=== PATIENT | female | born 1995 | race Caucasian/White ===

== ENCOUNTER 2018-08-06 14:04 | Emergency (ER) | payer OTHER ==
[~2018-08-06] VITALS: Ht 162.6 cm; Wt 63.5 kg
[2018-08-06] MEDS ORDERED: PRENA1 TRUE CO1 EACH (14:18)
== END 2018-08-06 21:53 | disposition home or self-care (01) ==
LOC: ER 14:04
DX: K52.89 Other specified noninfective gastroenteritis and colitis (principal)

== ENCOUNTER 2019-02-11 06:09 | Inpatient (IN) | payer OTHER ==
[~2019-02-11] VITALS: Ht 162.6 cm; Wt 190.0 kg
[~2019-02-11 06:09] MED LIST: PRENA1 TRUE CO1 EACH
[2019-02-11] MEDS ORDERED: AMPICILLIN TRI500 MG PO (08:18)
== END 2019-02-14 12:42 | DRG 788 ==
LOC: LDR 06:09 → OB/GYN 06:09 → LDR 08:03 → OB/GYN 23:38
PROVIDERS: ADMIT Obstetrics & Gynecology
PROC: 4A0HXFZ Measurement of Products of Conception, Cardiac Rhythm, External Approach (ICD-10-PCS; 2019-02-11)
PROC: 10D00Z1 Extraction of Products of Conception, Low, Open Approach (ICD-10-PCS; principal; 2019-02-11 20:00)
DX: O82 Encounter for cesarean delivery without indication (principal); O76 Abnormality in fetal heart rate and rhythm complicating labor and delivery; O99.820 Streptococcus B carrier state complicating pregnancy; Z3A.39 39 weeks gestation of pregnancy; Z37.0 Single live birth

== ENCOUNTER 2021-06-18 13:39 | Emergency (ER) | payer OTHER ==
[~2021-06-18] VITALS: Ht 162.6 cm; Wt 77.1 kg
[~2021-06-18 13:39] MED LIST changes: +AMPICILLIN TRI500 MG PO
[2021-06-18] MEDS ORDERED: KETO10TA2 PO (15:16)
== END 2021-06-18 15:24 | disposition home or self-care (01) ==
LOC: ER 13:39
DX: M25.572 Pain in left ankle and joints of left foot (principal)

== ENCOUNTER 2021-07-01 19:15 | Emergency (ER) | payer OTHER ==
[~2021-07-01] VITALS: Ht 162.6 cm; Wt 77.1 kg
[~2021-07-01 19:15] MED LIST changes: +KETO10TA2 PO
== END 2021-07-01 22:01 | disposition home or self-care (01) ==
LOC: ER 19:15
DX: R42 Dizziness and giddiness (principal); R51.9 Headache, unspecified; Z03.818 Encounter for observation for suspected exposure to other biological agents ruled out

== ENCOUNTER 2022-01-08 02:18 | Inpatient (IN) | payer OTHER ==
[~2022-01-08] VITALS: Ht 165.1 cm; Wt 72.6 kg
--- NOTE | 2022-01-08 02:43 | NUR ---
SE RECIBE PTE ALERTA Y ORIENTADA POR ALEX. PTE REFIERE PRESENTAR ABDOMEN DISTENDIDO, DOLOR ABDOMIANAL Y VOMITOS CON IRINEO X2.
--- NOTE | 2022-01-08 04:17 | NUR ---
SE RECIBE PTE FEMENINA ALERTA Y ORIENTADA X3,EN COMPANIA DE FAMILIAR ES EVALUADA POR ,SE ORIENTA A PTE SOBRE ORDEN MDICA,SE JOSE MUESTRAS Y SE ENVIAN A LABORATORIO,SE CANALIZA Y COLOCA IVF PATENTE,SE ADMINISTRAN MEDICAMENTOS LOS CULAES TOLERA.SE NOTIFICA A PERSONAL DE SONOGRAFIA SOBRE PTE.
== END 2022-01-17 15:16 | disposition home or self-care (01) | DRG 446 ==
LOC: ER → SURH 17:14
PROVIDERS: Radiology Vascular & Interventional Radiology; ADMIT Internal Medicine; ATTEND Internal Medicine
PROC: BW40ZZZ Ultrasonography of Abdomen (ICD-10-PCS; 2022-01-08)
PROC: 0F9430Z Drainage of Gallbladder with Drainage Device, Percutaneous Approach (ICD-10-PCS; principal; 2022-01-12 18:00)
DX: K80.00 Calculus of gallbladder with acute cholecystitis without obstruction (principal); D69.6 Thrombocytopenia, unspecified; E86.0 Dehydration; K52.89 Other specified noninfective gastroenteritis and colitis; Z20.822 Contact with and (suspected) exposure to COVID-19; Z53.8 Procedure and treatment not carried out for other reasons

== ENCOUNTER 2022-01-18 18:58 | Emergency (ER) | payer OTHER ==
[~2022-01-18] VITALS: Ht 165.1 cm; Wt 74.4 kg
== END 2022-01-18 21:54 | disposition home or self-care (01) ==
LOC: ER 18:58
DX: D69.6 Thrombocytopenia, unspecified (principal); Z76.89 Persons encountering health services in other specified circumstances

== ENCOUNTER 2022-01-25 13:54 | Outpatient (CLI) | payer OTHER | END 2022-01-25 13:55 | disposition home or self-care (01) | LOC: SONOGRAMA 13:54 | PROVIDERS: ATTEND Specialist | DX: K80.11 Calculus of gallbladder with chronic cholecystitis with obstruction (principal) ==

== ENCOUNTER 2022-01-27 06:27 | Day surgery (SDC) | payer OTHER ==
[~2022-01-27] VITALS: Ht 167.6 cm; Wt 74.4 kg
== END 2022-01-27 13:30 | disposition home or self-care (01) ==
LOC: CIR.AMB 06:27
PROVIDERS: ATTEND Specialist
DX: K80.10 Calculus of gallbladder with chronic cholecystitis without obstruction (principal); Z20.822 Contact with and (suspected) exposure to COVID-19; G43.909 Migraine, unspecified, not intractable, without status migrainosus; Z46.89 Encounter for fitting and adjustment of other specified devices

== ENCOUNTER 2022-09-14 14:40 | Emergency (ER) | payer OTHER ==
[~2022-09-14] VITALS: Ht 167.6 cm; Wt 78.5 kg
== END 2022-09-14 18:23 | disposition home or self-care (01) ==
LOC: ER 14:40
DX: R11.2 Nausea with vomiting, unspecified (principal); G43.909 Migraine, unspecified, not intractable, without status migrainosus; Z20.822 Contact with and (suspected) exposure to COVID-19